=== PATIENT | female | born 1955 | race Caucasian/White ===

== ENCOUNTER 2016-11-15 05:39 | Observation (INO) | payer BC ==
[2016-11-15] MEDS ORDERED: KETOROLAC TROMETHAMINE 30 MG/ML VIAL IV ONE (05:49)
[2016-11-15] MEDS ORDERED: ONDANSETRON HCL/PF 2 MG/ML VIAL IV ONE ×2 (05:49→13:03)
[2016-11-15] MEDS ORDERED: NORMAL SALINE 1,000 ML IV ONE ×3 (05:49→10:02)
[2016-11-15] MEDS ORDERED: KETOROLAC TROMETHAMINE 30 MG/ML VIAL ONE (05:53)
[2016-11-15] MEDS ORDERED: ONDANSETRON HCL/PF 2 MG/ML VIAL ONE (05:53)
--- NOTE | 2016-11-15 05:53 | ERNOTE ---
Abdominal HPI - General Chief Complaint: Abdominal Pain Time Seen by Provider: 11/15/16 05:40 Source: patient Exam Limitations: no limitations - Immun/Allergies/Home Medications Immunizatons: IMMUNIZATION HX Immunizations Up to Date Yes History of Influenza Vaccine No Hx Pneumococcal Vaccination No Allergies/Adverse Reactions: Allergies norfloxacin [From Noroxin] Allergy (Verified 11/15/16 06:01) Sulfa (Sulfonamide Antibiotics) Allergy (Verified 11/15/16 06:01) Home Medications: HOME MEDICATIONS Letrozole [Femara] 2.5 mg PO DAILY 11/15/16 [Last Taken Unknown] - History of Present Illness Date (Duration): 11/14/16 Time (Timing): 21:45 Timing: constant, getting worse Quality: moderate, aching Activities at Onset: none Modifying Factors - (Improves): Present: other - nothing Modifying Factors - (Worsens): Absent: breathing, coughing, movement, vomiting Associated Symptoms: Present: nausea Prior Abdominal Problems: Present: none Review of Systems - Review of Systems Constitutional: Absent: recent illness, fever ENT: Absent: nose congestion, sore throat Respiratory: Absent: shortness of breath Cardiology: Absent: chest pain Gastrointestinal/Abdominal: Present: See HPI, nausea, abdominal pain. Absent: vomiting, diarrhea, constipation Genitourinary: Present: no symptoms reported. Absent: frequency, dysuria Musculoskeletal: Absent: back pain Skin: Absent: rash Neurological: Absent: headache Hematologic/Lymphatic: Present: no symptoms reported Psych: Present: no symptoms reported - Patient's Past Medical History Patient History - Medical: No pertinent hx, Chronic Pain - back pain Patient History - Cardiac/Respiratory: No pertinent hx Patient History - Cancer: Breast Patient History - Surgical Procedures: Cancer Surgery, Tubal Ligation Patient History - Other: None LMP (females 10-50): Menopausal - Social History Living Situations: home Abuse History: No History of abuse Psych History: No pertinent hx Smoking Status: Current every day smoker Cigarettes Packs Per Day: 0.5 Alcohol Use: none Drug Use: none - Immunizations Immunizations Up to Date: Yes Hx Pneumococcal Vaccination: No History of Influenza Vaccine: No Physical Exam - Physical Exam General Appearance: Present: wd/wn, alert, mild distress Respiratory: Present: no respiratory distress, normal breath sounds, no accessory muscle use, lungs clear Cardiovascular/Chest: Present: regular rate, rhythm, no murmur Gastrointestinal/Abdominal: Present: normal bowel sounds, nondistended, soft, no organomegaly, tenderness, guarding, rebound, McBurney sign Back Exam: Present: no CVA tenderness Extremity Exam: Present: no edema Neurological Exam: Present: alert, oriented, normal mood/affect Skin Exam: Present: normal color, warm/dry ED Progress - Results and Orders Patient's Lab Results:: I have reviewed the patient's lab results. - Vital Signs Patient's Vital Signs:: I have reviewed the patient's vital signs. Vital Signs: Vital Signs 11/15/16 05:41 Temperature 36.9 C Pulse Rate 107 H Respiratory 18 Rate Blood Pressure 113/68 O2 Sat by Pulse 99 Oximetry - X-Ray X-Ray #1 X-Ray: abdomen - no acute findings Interpretation: Interp. by me - Progress/Reassessment Chief Complaint: Abdominal Pain Progress Note-Subjective: 11/15/16 06:22 pain better after toradol, discussed labs and Xray results, will get CT as concern about appendicitis 11/15/16 06:54 patient tolerating contrast, denies need for pain medication - Transfer of Care Physician Sign Out: Chantal Rm Receiving Physician: Griselda Miramontes Pending Results: CT/MRI results Expected Disposition: Admit Departure - Departure Clinical Impression: Abdominal pain Condition: Stable Referrals: Leah Loaiza MD [Primary Care Provider] -
[2016-11-15 06:08] LABS: Hemoglobin 13.1 gm/dL (12.5-16.0); Mean Cell Volume 93.6 fl (78-100); Mean Corpuscular Hemoglobin 32.3 pg (27-31); Mean Corpuscular Hgb Conc 34.5 g/dl (32-36); Mean Platelet Volume 10.5 fl (6.0-9.5); Platelet Count 270 K/mm3 (150-450); Red Blood Count 4.06 M/mm3 (4.2-5.4); Red Cell Distribution Width 11.8 % (11.5-14.0); White Blood Count 22.8 K/mm3 (4.0-10.5)
[2016-11-15 06:10] LABS: Total Cells Counted 100
[2016-11-15] MEDS ORDERED: DIATRIZOATE MEGLUMINE, SODIUM 30 ML BTL PO ONE (06:11)
[2016-11-15] MEDS ORDERED: DIATRIZOATE MEGLUMINE, SODIUM 30 ML BTL ONE (06:22)
[2016-11-15 06:26] LABS: Albumin * 4.1 gm/dl (3.4-5.0); Anion Gap 19.5 mmol/L (6.8-13.8); BUN/Creatinine Ratio 26.7 (9.0-21.6); Bilirubin, Total 0.7 mg/dL (0.0-1.1); Ca. Corrected For Albumin 9.1 mg/dL (8.4-10.2); Calcium * 9.5 mg/dL (7.9-10.9); Carbon Dioxide 21.4 mmol/L (24-32.6); Potassium 3.9 mmol/L (3.4-4.6); Total Protein 7.9 gm/dL (6.2-8.2)
[2016-11-15 06:29] LABS: Band 5 % (0-2.0); Lymphocyte 2 % (20-51); Monocyte 5 % (0-9); Neutrophil 88 % (42-75); Neutrophil # 20.1 K/mm3 (1.3-6.0)
[2016-11-15 06:30] LABS: Dohle Bodies 2+; Platelet Estimate Normal (NORMAL)
[2016-11-15 06:42] LABS: Urine Bilirubin 1 mg/dl (NEGATIVE); Urine Blood 25 /ul (NEGATIVE); Urine Ketone Large mg/dL (NEGATIVE); Urine Nitrite Negative (NEGATIVE); Urine Protein 15 mg/dL (NEGATIVE); Urine Specific Gravity 1.025 SP.GR. (1.005-1.010); Urine Urobilinogen Normal (NORMAL)
[2016-11-15 06:57] LABS: Urine Appearance Slightly Cloudy; Urine Bacteria 2+; Urine Color Dark Yellow; Urine RBC 0-5 /hpf (0-5)
[2016-11-15] MEDS ORDERED: ACETAMINOPHEN 325 MG TABLET PO ONE (07:29)
[2016-11-15] MEDS ORDERED: ACETAMINOPHEN 325 MG TABLET ONE (07:30)
[2016-11-15] MEDS ORDERED: PIPERACILLIN SODIUM/TAZOBACTAM 3.375 GM in DEXTROSE 5 % IN WATER 100 ML IV ONE ×2 (08:36)
--- NOTE | 2016-11-15 09:36 | HP ---
Chief Complaint - Chief Complaint Date of Service: 11/15/16 Time of Service: 09:30 Chief Complaint: RLQ abdominal pain History of Present Illness: RLQ abdominal pain since midnight. ER findings are c/w acute appendicitis. WBC 22K. CT shows uncomplicated acute appendicitis. - Patient's Past Medical History Patient History - Medical: No pertinent hx, Chronic Pain - back pain Patient History - Cardiac/Respiratory: No pertinent hx Patient History - Cancer: Breast Patient History - Surgical Procedures: Cancer Surgery, Tubal Ligation - Laparoscopic Patient History - Other: None LMP (females 10-50): Menopausal - Family History non-contributory Additional Info: Non-contributory - Social History Living Situations: home Abuse History: No History of abuse Psych History: No pertinent hx Smoking Status: Current every day smoker Cigarettes Packs Per Day: 0.5 Alcohol Use: none Drug Use: none - Immunizations Immunizations Up to Date: Yes Hx Pneumococcal Vaccination: No History of Influenza Vaccine: No Review Of Systems (GEN) - Review of Systems Misc: All systems neg except as marked Allergies/Adverse Reactions: Allergies Allergy/AdvReac Type Severity Reaction Status Date / Time norfloxacin [From Noroxin] Allergy Verified 11/15/16 06:01 Sulfa (Sulfonamide Allergy Verified 11/15/16 06:01 Antibiotics) Home Medications: HOME MEDICATIONS Letrozole [Femara] 2.5 mg PO DAILY 11/15/16 [Last Taken Unknown] Exam - Exam Vital Signs: Vital Signs - Last Taken Temp 38.6 C H 11/15/16 08:45 Pulse 103 H 11/15/16 08:45 Resp 18 11/15/16 08:45 BP 136/71 11/15/16 08:45 Pulse Ox 94 11/15/16 08:45 Constitutional: Present: Alert, Oriented x3, Cooperative, Well developed, Well nourished, No distress ENT Exam: Present: normal ENT inspection Eye Exam: bilateral eye: normal inspection Neck: Present: non-tender, full range of motion, supple, normal inspection, trachea midline. Absent: lymphadenopathy (R), lymphadenopathy (L), thyromegaly Respiratory: Present: lungs clear, normal breath sounds, no respiratory distress , no accessory muscle use Cardiovascular/Chest: Present: regular rate, rhythm, no murmur Abdomen: Present: Normal bowel sounds, tender - RLQ /Rectal: Present: Exam deferred Extremity: Present: normal range of motion Skin Exam: Present: normal color, warm/dry Neurologic: Present: no motor/sensory deficits Appearance: Present: appropriate appearance, appropriate insight Eye contact: Present: cooperative Thoughts: Present: normal thought pattern Diagnostic Studies: Laboratory Results WBC 22.8 K/mm3 (4.0-10.5) H 11/15/16 06:04 RBC 4.06 M/mm3 (4.2-5.4) L 11/15/16 06:04 Hgb 13.1 gm/dL (12.5-16.0) 11/15/16 06:04 Hct 38.0 % (37.0-47.0) 11/15/16 06:04 MCV 93.6 fl (78-100) 11/15/16 06:04 MCH 32.3 pg (27-31) H 11/15/16 06:04 MCHC 34.5 g/dl (32-36) 11/15/16 06:04 RDW 11.8 % (11.5-14.0) 11/15/16 06:04 Plt Count 270 K/mm3 (150-450) 11/15/16 06:04 MPV 10.5 fl (6.0-9.5) H 11/15/16 06:04 Neutrophils % (Manual) 88 % (42-75) H 11/15/16 06:04 Band Neuts % (Manual) 5 % (0-2.0) H 11/15/16 06:04 Lymphocytes % (Manual) 2 % (20-51) L 11/15/16 06:04 Monocytes % (Manual) 5 % (0-9) 11/15/16 06:04 Neutrophils # (Manual) 20.1 K/mm3 (1.3-6.0) H 11/15/16 06:04 Lymphocytes # (Manual) 0.5 k/mm3 (1.5-3.5) L 11/15/16 06:04 Monocytes # (Manual) 1.1 k/mm3 (0.0-1.0) H 11/15/16 06:04 Toxic Vacuolation 1+ 11/15/16 06:04 Dohle Bodies 2+ 11/15/16 06:04 Platelet Estimate Normal (NORMAL) 11/15/16 06:04 Sodium 139 mmol/L (132-142) 11/15/16 06:04 Plasma Sodium 140 mmol/L (130-142) 11/15/16 06:04 Potassium 3.9 mmol/L (3.4-4.6) 11/15/16 06:04 Chloride 102 mmol/L (97-106) 11/15/16 06:04 Carbon Dioxide 21.4 mmol/L (24-32.6) L 11/15/16 06:04 Anion Gap 19.5 mmol/L (6.8-13.8) H 11/15/16 06:04 BUN 23 mg/dL (3-23) D 11/15/16 06:04 Creatinine 0.86 mg/dL (0.4-1.4) 11/15/16 06:04 Est GFR (Non-Af Amer) 72 mL/min (60-130) 11/15/16 06:04 BUN/Creatinine Ratio 26.7 (9.0-21.6) H 11/15/16 06:04 Random Glucose 165 mg/dL (70-110) H 11/15/16 06:04 Lactic Acid, Venous 1.8 mmol/L (0.4-1.9) 11/15/16 06:00 Calcium 9.5 mg/dL (7.9-10.9) 11/15/16 06:04 Calcium Adj for Albumin 9.1 mg/dL (8.4-10.2) 11/15/16 06:04 Total Bilirubin 0.7 mg/dL (0.0-1.1) 11/15/16 06:04 AST 20 U/L (0-48) 11/15/16 06:04 ALT 28 U/L (19-67) 11/15/16 06:04 Alkaline Phosphatase 118 U/L (50-170) 11/15/16 06:04 Total Protein 7.9 gm/dL (6.2-8.2) 11/15/16 06:04 Albumin 4.1 gm/dl (3.4-5.0) 11/15/16 06:04 Lipase 118 U/L (73-393) 11/15/16 06:04 Urine Color Dark yellow 11/15/16 06:19 Urine Appearance Slightly cloudy 11/15/16 06:19 Urine pH 6.0 pH (5.0-7.0) 11/15/16 06:19 Ur Specific [place] 1.025 SP.GR. (1.005-1.010) 11/15/16 06:19 Urine Protein 15 mg/dL (NEGATIVE) H 11/15/16 06:19 Urine Glucose (UA) 100 mg/dL (NEGATIVE) H 11/15/16 06:19 Urine Ketones Large mg/dL (NEGATIVE) 11/15/16 06:19 Urine Blood 25 /ul (NEGATIVE) H 11/15/16 06:19 Urine Nitrate Negative (NEGATIVE) 11/15/16 06:19 Urine Bilirubin 1 mg/dl (NEGATIVE) H 11/15/16 06:19 Urine Ictotest Negative (NEGATIVE) 11/15/16 06:19 Prot Sulfosalicylic Acd 1+ mg/dL (0) 11/15/16 06:19 Urine Urobilinogen Normal EU/dl (NORMAL) 11/15/16 06:19 Ur Leukocyte Esterase Negative /ul (NEGATIVE) 11/15/16 06:19 Urine RBC 0-5 /hpf (0-5) 11/15/16 06:19 Urine WBC 5-10 /hpf (0-5) H 11/15/16 06:19 Ur Epithelial Cells 5-10 /hpf (0-5) H 11/15/16 06:19 Urine Bacteria 2+ (NONE) H 11/15/16 06:19 Urine Culture Comments Culture to follow 11/15/16 06:19 Assessment/Plan - Assessment/Plan (1) Acute appendicitis with localized peritonitis Assessment: P: Recommend laparoscopic appendectomy. The options, risks, and benefits were reviewed fully. She seems to understand, asks appropriate questions, and desires to proceed. Problem: Acute
[2016-11-15] MEDS ORDERED: LEVOFLOXACIN/D5W 500 MG/100 ML BAG IV SCH (10:15)
[2016-11-15] MEDS ORDERED: ENOXAPARIN SODIUM 40 MG/0.4 ML SYRG SC STA (10:51)
[2016-11-15] MEDS ORDERED: RINGER'S SOLUTION,LACTATED 1,000 ML IV ONE ×2 (11:35→12:40)
[2016-11-15] MEDS ORDERED: BUPIVACAINE HCL/EPINEPHRINE 50 ML VIAL IJ ONE ×2 (12:00)
--- NOTE | 2016-11-15 13:02 | OR ---
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 A valdez catheter was inserted and SCD boots applied. The abdomen was prepped and draped in a sterile fashion. All port sites were anesthetized with marcaine prior to incision. A 5mm infraumbilical incision was carried out and blunt dissection taken down to the abdominal wall. A perforating towel clip was placed through the umbilical raphe for counter- traction. The abdomen was entered under direction vision with a 5mm blunt port with a scope within the lumen of the trocar. Under direct vision and 12mm suprapubic and 5mm LLQ port were inserted. There was adhesion of omentum to the RLQ abdominal wall and appendix that were taken down with blunt dissection. There was a nascent right indirect inguinal hernia noted. The appendix was gangrenous but not perforated all the way down to the base. The mesoappendix was taken down in continuitywith a thunderbeat. The appendix was transect at the cecum with an endoGIA. The appendix was placed in an endocatch bag and delivered from the abdomen. Inspection revealed good hemostasis. No purulence was encountered. The pneumoperitoneum was evacuated and ports removed. The incisions were closed with subcuticular stitched of 4-0 Vicryl and sealed with dermabond. The patient tolerated the procedure well without apparent complications and was discharged from the operating room in stable condition. The patient was noted to have an elevated D-dimer in the ER. She was given lovenox and SCD's as precuation but in my estimation the elevation is due to sepsis/incipient DIC which has been remedied by surgery.
[2016-11-15] MEDS ORDERED: RINGER'S SOLUTION,LACTATED 1,000 ML IV PRN (13:03)
[2016-11-15] MEDS ORDERED: MORPHINE SULFATE 2 MG/ML DISP.SYRIN IV PRN (13:03)
--- NOTE | 2016-11-15 13:12 | DS ---
(1) Acute appendicitis with localized peritonitis Problem: Resolved Description of Stay: Pt presented to ER with s/s c/w acute appendicitis and was taken to the OR where lap appy was performed. It was not perforated and no purulence was seen. Tolerated procedure well and will be discharged today after one more dose of zosyn. She is to avoid lifting > 20 lb x 1 week. She may shower. Diet as tolerated. Procedures Performed: see notes below List Procedures: Laparoscopic appendectomy Discharge Disposition: Home self care Disposition: Home self-care Condition: Stable Discharge Activity: No Lifting - > 20 lb x 1 week Discharge Diet: General/regular food Referrals: Leah Loaiza MD [Primary Care Provider] - Complete Home Medications List: Complete Home Medication List: Cranberry Fruit Extract [Cranberry] 300 mg PO DAILY 11/15/16 Ferrous Sulfate [Iron] 325 mg PO DAILY 11/15/16 Letrozole [Femara] 2.5 mg PO DAILY 11/15/16 Multivitamin [Multivitamins] 1 each PO DAILY 11/15/16
[2016-11-15] MEDS: oxyCODONE HCL/ACETAMINOPHEN 1 TAB TABLET PO PRN ×2 (13:48→21:23)
[2016-11-15] MEDS ORDERED: PIPERACILLIN SODIUM/TAZOBACTAM 3.375 GM in DEXTROSE 5 % IN WATER 100 ML IV SCH ×2 (17:00)
[2016-11-15 22:22] VITALS: BP 107/61
== END 2016-11-15 21:40 | disposition home or self-care (01) ==
LOC: ER 05:39 → INTOOBSV 09:13 → MS 09:13
PROVIDERS: ADMIT Specialist; ATTEND Specialist
PROC: 0DTJ4ZZ Resection of Appendix, Percutaneous Endoscopic Approach (ICD-10-PCS; principal; 2016-11-15 13:30)
DX: K35.3 Acute appendicitis with localized peritonitis (principal); Z87.891 Personal history of nicotine dependence
CPT/HCPCS: 36415; 44970; 74020; 74177; 80053; 81001; 83605; 83690; 85025; 85379; 87040; 87086; 88304; 96365; 96366; 96372; 96374; 96375; 99285; G0378; J2405